=== PATIENT | female | born 1985 | race African-American/Black ===

== ENCOUNTER 2020-04-28 16:30 | Emergency (ER) | payer OTHER ==
[~2020-04-28] VITALS: Ht 172.7 cm; Wt 95.3 kg
[~2020-04-28 16:30] MED LIST: ASPIRIN325; BACTRIM DS TAB1 EACH PO; DOXYCYCLINE 10100 MG PO; FLAGYL500 MG PO; IBUPROFEN 200200 M1 PO; IBUPROFEN 600600 M1 PO; IBUPROFEN 800800 M1 PO; IBUPROFEN 800800 MG PO; IMPLANON; KEFLEX500 MG PO; LOPERAMIDE2 MG PO; LORTAB 5 MG/5001 TAB PO; NOHOMEMEDICATIONS; NORCO 5-325 TA1 EACH PO; ONDANSETRON HCL4 M2 PO; OXYCONTIN; PERCOCET 5-3251 EACH PO; PHENERGAN 25 MG25 M1 PO; PHENERGAN 25 MG25 MG PO; PREDNISONE50 MG PO; PRILOSEC40 MG PO; PROAIR HFA8.5 GM; PROTONIX 20 MG20 M1 PO; PROVENTIL; ULTRAM 50MG TAB50 MG PO; VICODIN 5-5001 EACH PO; ZOFRAN ODT4 MG PO
[2020-04-28 16:34] VITALS: BP 130/82
[2020-04-28] MEDS ORDERED: HUMIRA10 MG/0.1 SUBQ (16:37)
[2020-04-28] MEDS ORDERED: BACTRIM DS TAB1 EACH PO (17:27)
[2020-04-28] MEDS ORDERED: KEFLEX500 M1 PO (17:27)
== END 2020-04-28 17:29 | disposition home or self-care (01) ==
LOC: ER 16:30
DX: L03.116 Cellulitis of left lower limb (principal); J45.909 Unspecified asthma, uncomplicated; F17.210 Nicotine dependence, cigarettes, uncomplicated; Z79.899 Other long term (current) drug therapy; Z88.0 Allergy status to penicillin